=== PATIENT | female | born 1925 | race Caucasian/White ===

== ENCOUNTER 2016-11-27 12:56 | Observation (INO) ==
--- NOTE | 2016-11-27 13:00 | Emergency Department Note ---
Disposition Clinical Impression: Weakness, Nausea, Anorexia, Acute renal insufficiency UTI (urinary tract infection) Qualifiers: Urinary tract infection type: acute cystitis Hematuria presence: without hematuria Qualified Code(s): N30.00 - Acute cystitis without hematuria Disposition: Admitted As Inpatient Condition: Good Referrals: Lorna Schwarz CNP [Primary Care Provider] - () Forms: ED Satisfaction Letter General Adult HPI - General Chief complaint: ED Nausea/Vomiting/Diarrhea Stated complaint: Vomiting, Dysuria, Time Seen by Provider: 11/27/16 13:08 Source: patient, family Mode of arrival: private vehicle Limitations: altered mental status (Dementia), age Nursing Notes Reviewed: Yes Vital Signs Reviewed: Yes - History of Present Illness HPI Narrative: Patient reportedly had a urinary tract infection about a month ago and it returned with evaluation at this emergency department on November 21. She had a culture positive for Escherichia coli that was pansensitive and she was placed on Bactrim and Pyridium. Since going home she has had lassitude and has been "laying around". She has had a decrease in oral intake and has lost about 4 pounds. She has had nausea and vomiting about 1-2 times a day just described as a "small amount" without any blood or mucus. She states she is holding medication down and is taking down some fluids. She has had normal bowel and 2 days ago and as noted she is urinating less frequently. She has not been having fever, chills, cough, chest pain or shortness of breath. She denies anterior abdominal pain or flank pain. She has indicates she gets a little dizzy when she stands. Her family was concerned for dehydration and have brought her back for reevaluation. Onset (ago): day(s) Consistency: constant Improves with: rest Worsens with: movement, other (Activity) Associated symptoms: Reports: loss of appetite, malaise, weakness. Denies: confusion, chest pain, cough, diaphoresis, fever/chills, headaches, nausea/ vomiting, rash, seizure, shortness of breath, syncope - Related Data Home Medications Medication Instructions Recorded Confirmed Acetaminophen [Tylenol Arthritis] 650 mg PO DAILY PRN 08/07/16 11/27/16 Aspirin 81 mg PO DAILY 11/21/16 11/27/16 Previous Rx's Medication Instructions Recorded Simvastatin [Zocor] 20 mg PO HS #30 tab 09/12/16 amLODIPine [Norvasc] 5 mg PO DAILY #30 tab 09/12/16 Phenazopyridine [Pyridium] 200 mg PO TID PRN #9 tablet 11/21/16 Sulfamethoxazole/Trimeth DS 1 each PO BID #20 tablet 11/21/16 [Bactrim DS] Allergies Allergy/AdvReac Type Severity Reaction Status Date / Time iodine Allergy Anaphylaxis Verified 09/11/16 14:56 acetaminophen [From Vicodin] AdvReac Vomiting Verified 09/11/16 14:56 hydrocodone [From Vicodin] AdvReac Vomiting Verified 09/11/16 14:56 Oxycodone [From Percocet] AdvReac Dizziness Verified 09/11/16 14:56 All systems ED: reviewed and negative except as stated. Past Medical History - Past Medical History Attestation: Yes The following information was validated with the patient. 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 - Social History Smoking Status: Never smoker Smokeless Tobacco Status: No Alcohol use: Reports: none Drug use: Reports: none Physical Exam - General Limitations: no limitations General appearance: alert, in no apparent distress - Head Head exam: atraumatic, normocephalic, normal inspection - Eye Eye exam: Present: normal appearance, PERRL, EOMI - ENT ENT exam: normal exam, normal oropharynx, mucous membranes dry - Neck Neck exam: Present: normal inspection, full ROM, trachea midline - Chest Chest inspection: Present: normal inspection, symmetric chest wall rise - Respiratory Respiratory exam: Present: normal lung sounds bilaterally. Absent: respiratory distress, wheezes, prolonged expiratory phase - Cardiovascular Cardiovascular exam: Present: regular rate, normal rhythm, normal heart sounds - Abdominal Exam Abdominal exam: Present: soft, Non-Tender, normal bowel sounds. Absent: tenderness, distention, guarding, rebound, rigidity Abdominal tenderness: Absent: suprapubic - Extremities Exam Extremities exam: Present: normal inspection, full ROM, normal capillary refill. Absent: tenderness, pedal edema, calf tenderness - Expanded Lower Extremity Exam Neurovascular/Tendon exam: Present: normal capillary refill. Absent: motor deficit, sensory deficit, tendon deficit Gait: observed and normal - Back Exam Back exam: Present: normal inspection, full ROM. Absent: tenderness, CVA tenderness (R), CVA tenderness (L), vertebral tenderness - Neurological Exam Neurological exam: Present: alert, normal gait. Absent: motor sensory deficit - Psychiatric Psychiatric exam: Present: normal affect, normal mood - Skin Skin exam: Present: warm, dry, intact, normal color. Absent: rash, cyanosis, diaphoresis, pallor Course Course Narrative: 1425: With persistent UTI and acute renal insufficiency, care has been discussed with family and with Dr. Jamison. The decision has been made to have her inpatient for continued observation. Verbal orders have been obtained. Vital Signs Temperature 98.1 F 11/27/16 12:59 Pulse Rate 96 11/27/16 12:59 Respiratory Rate 18 11/27/16 12:59 Blood Pressure 117/78 11/27/16 12:59 O2 Sat by Pulse Oximetry 98 11/27/16 12:59 Temperature 98.1 F 11/27/16 12:59 Pulse Rate 71 11/27/16 14:10 Respiratory Rate 18 11/27/16 14:10 Blood Pressure 125/78 11/27/16 14:10 O2 Sat by Pulse Oximetry 95 11/27/16 14:10 Oxygen Delivery Oxygen Delivery Room Air Medical Decision Making - Medical Records Medical records reviewed: Yes I reviewed the patient's medical records. - Lab Data Lab results reviewed: Yes I reviewed the patient's lab results. Result diagrams: 11/27/16 13:25 11/27/16 13:25 Lab Results 11/27/16 11/27/16 11/27/16 Range/Units 13:25 13:25 13:25 WBC 5.8 (4.3-11.1) K/mcL RBC 3.99 (3.82-4.97) M/mcL Hgb 12.0 (11.5-15.4) g/dL Hct 37.7 (35.3-44.9) % MCV 94.5 (83.0-100.0) fL MCH 30.1 (28.0-33.3) pg MCHC 31.8 (31.6-35.5) g/dL RDW 12.9 (11.5-14.5) % Plt Count 168 (140-400) K/mcL MPV 10.3 (9.4-12.4) fL Immature Gran % 0.3 (0-4) % Seg Neutrophils % 62.4 % Lymphocytes % 26.2 % Monocytes % 6.2 % Eosinophils % 4.2 % Basophils % 0.7 % Neutrophils # 3.6 (1.6-8.9) K/mcL Lymphocytes # 1.5 (0.6-4.6) K/mcL Monocytes # 0.4 (0.0-1.3) K/mcL Eosinophils # 0.2 (0.0-0.6) K/mcL Basophils # 0.0 (0.0-0.2) K/mcL Sodium 139 (136-145) mEq/L Potassium 4.5 (3.5-4.5) mEq/L Chloride 104 (98-109) mEq/L Carbon Dioxide 21 (19-29) mEq/L BUN 27 H (7-20) mg/dL Creatinine 1.74 H (0.57-1.11) mg/dL Est GFR ( Amer) 33 L (> 60) Est GFR (Non-Af Amer) 28 L (> 60) BUN/Creatinine Ratio 16 (6-26) Glucose 135 H (70-99) mg/dL Calculated Osmolality 295 (280-300) Lactic Acid 1.6 (0.5-2.2) mmol/L Calcium 10.1 (8.6-10.8) mg/dL Urine Color (Yellow) Urine Clarity (Clear) Urine pH (5.0-8.0) pH Units Ur Specific [place] (1.010-1.025) Urine Protein (Neg-Trace) mg/dL Urine Glucose (UA) (Normal) mg/dL Urine Ketones (Negative) mg/dL Urine Blood (Negative) Urine Nitrite (Negative) Urine Bilirubin (Negative) Urine Urobilinogen (Normal) mg/dL Ur Leukocyte Esterase (Negative) Urine Microscopic RBC (0-3) per hpf Urine Microscopic WBC (0-3) per hpf Ur Squamous Epith Cells (None-Few) per lpf Urine Bacteria (None-Few) per hpf Hyaline Casts (None-Few) per lpf Granular Casts (None Seen) per lpf Ur Culture Indicated? (NO) 11/27/16 Range/Units 14:10 WBC (4.3-11.1) K/mcL RBC (3.82-4.97) M/mcL Hgb (11.5-15.4) g/dL Hct (35.3-44.9) % MCV (83.0-100.0) fL MCH (28.0-33.3) pg MCHC (31.6-35.5) g/dL RDW (11.5-14.5) % Plt Count (140-400) K/mcL MPV (9.4-12.4) fL Immature Gran % (0-4) % Seg Neutrophils % % Lymphocytes % % Monocytes % % Eosinophils % % Basophils % % Neutrophils # (1.6-8.9) K/mcL Lymphocytes # (0.6-4.6) K/mcL Monocytes # (0.0-1.3) K/mcL Eosinophils # (0.0-0.6) K/mcL Basophils # (0.0-0.2) K/mcL Sodium (136-145) mEq/L Potassium (3.5-4.5) mEq/L Chloride (98-109) mEq/L Carbon Dioxide (19-29) mEq/L BUN (7-20) mg/dL Creatinine (0.57-1.11) mg/dL Est GFR ( Amer) (> 60) Est GFR (Non-Af Amer) (> 60) BUN/Creatinine Ratio (6-26) Glucose (70-99) mg/dL Calculated Osmolality (280-300) Lactic Acid (0.5-2.2) mmol/L Calcium (8.6-10.8) mg/dL Urine Color Dark Yellow (Yellow) Urine Clarity Clear (Clear) Urine pH 5.5 (5.0-8.0) pH Units Ur Specific [place] 1.025 (1.010-1.025) Urine Protein 30 H (Neg-Trace) mg/dL Urine Glucose (UA) Normal (Normal) mg/dL Urine Ketones Negative (Negative) mg/dL Urine Blood Trace-lysed H (Negative) Urine Nitrite Positive A (Negative) Urine Bilirubin Small H (Negative) Urine Urobilinogen Normal (Normal) mg/dL Ur Leukocyte Esterase Trace H (Negative) Urine Microscopic RBC 0-3 (0-3) per hpf Urine Microscopic WBC 15-30 H (0-3) per hpf Ur Squamous Epith Cells Moderate H (None-Few) per lpf Urine Bacteria Moderate H (None-Few) per hpf Hyaline Casts Few (None-Few) per lpf Granular Casts Few H (None Seen) per lpf Ur Culture Indicated? YES A (NO)
[2016-11-27] MEDS ORDERED: 0.9 % Sodium Chloride 500 ML IVC ONE (13:13)
[2016-11-27 13:31] LABS: Basophils % 0.7 %; Eosinophils # 0.2 K/mcL (0.0-0.6); Eosinophils % 4.2 %; Hematocrit 37.7 % (35.3-44.9); Immature Granulocytes % 0.3 % (0-4); Lymphocytes # 1.5 K/mcL (0.6-4.6); Lymphocytes % 26.2 %; Mean Corpuscular HGB Conc 31.8 g/dL (31.6-35.5); Mean Corpuscular Hemoglobin 30.1 pg (28.0-33.3); Mean Corpuscular Volume 94.5 fL (83.0-100.0); Mean Platelet Volume 10.3 fL (9.4-12.4); Monocytes # 0.4 K/mcL (0.0-1.3); Monocytes % 6.2 %; Neutrophils # 3.6 K/mcL (1.6-8.9); Platelet Count 168 K/mcL (140-400); Red Blood Count 3.99 M/mcL (3.82-4.97); Red Cell Distribution Width 12.9 % (11.5-14.5); Segmented Neutrophils % 62.4 %
[2016-11-27 13:47] LABS: Calcium 10.1 mg/dL (8.6-10.8); Potassium 4.5 mEq/L (3.5-4.5)
[2016-11-27 14:14] LABS: Bilirubin,Urine Small (Negative); Blood,Urine Trace-lysed (Negative); Clarity,Urine Clear (Clear); Glucose,Urine (UA) Normal (Normal); Ketones,Urine Negative (Negative); Leukocyte Esterase,Urine Trace (Negative); Nitrite,Urine Positive (Negative); PH,Urine 5.5 pH Units (5.0-8.0); Protein,Urine 30 mg/dL (Neg-Trace); Specific Gravity,Urine 1.025 (1.010-1.025); Urobilinogen,Urine Normal (Normal)
[2016-11-27 14:20] LABS: Color,Urine Dark Yellow (Yellow)
[2016-11-27 14:22] LABS: Granular Casts,Urine Few per lpf (None Seen)
[2016-11-27 14:23] LABS: Bacteria,Urine Moderate per hpf (None-Few); Hyaline Casts,Urine Few per lpf (None-Few); RBC,Urine 0-3 per hpf (0-3); Squamous Epithelial Cell,Urine Moderate per lpf (None-Few); WBC,Urine 15-30 per hpf (0-3)
[2016-11-27] MEDS ORDERED: 0.9 % Sodium Chloride 1,000 ML IVC SCH (15:07)
[2016-11-27] MEDS ORDERED: MOM Conc 10 ML UD.LIQ PO PRN (15:07)
[2016-11-27] MEDS ORDERED: Acetaminophen 325 MG TABLET PO PRN (15:07)
[2016-11-27] MEDS ORDERED: Ondansetron 4 MG/2 ML VIAL IVP PRN (15:07)
[2016-11-27] MEDS ORDERED: Naloxone 0.4 MG/ML INJ IVP PRN (15:07)
--- NOTE | 2016-11-27 16:39 | Internal Med History&Physical ---
Date of Encounter: 11/27/16 Time of Encounter: 16:10 Assessment and Plan (1) Acute renal insufficiency Current visit: Yes Status: Acute Appears to be acute on chronic. We will give IV fluids and recheck labs in a.m. Will check orthostatic vital signs in a.m. (2) Hypertension Current visit: No Status: Chronic Will hold Norvasc and give IV fluids. Will check orthostatic vital signs in a.m. Qualifiers: Hypertension type: essential hypertension Qualified Code(s): I10 - Essential (primary) hypertension Internal Medicine - H&P: HPI Chief complaint: UTI, vomiting, weakness Admitted From: Home Plans for Post Hospital Care: Home History of present illness: Ms. Fajardo is a 89 year old female who came to emergency room after having 5- 6 episodes of vomiting over the past 5 days. She had been treated in the emergency room 11/21/2016 for UTI and prescribed Pyridium and Bactrim DS. She had gotten progressively more nauseated with vomiting over the following days. She was evaluated in emergency room today and found to have acute on chronic kidney disease. [facility] care needs. She denies pain at this time. Her daughter was unaware patient has evidence of chronic kidney disease from review of past labs. There is no other history of kidney or bladder disorders. Past Med Surg Social Fam HX - Past Medical History Medical history: dementia, hyperlipidemia, hypertension, TIA, other Psychiatric history: no psych history - Past Surgical History Surgical History: hysterectomy, orthopedic, other, other - Social History Smoking Status: Never smoker Smokeless Tobacco Status: No Alcohol use: none Drug use: none - Family History Mother Adopted: No Living Status: Hx Family Cardiac Disorders: No Hx Family Respiratory Disorders: No Hx Family Cancer: Yes (uterine cancer) Hx Family GI Disorders: No Hx Family Endocrine Disorder: No Hx Family Neuromuscular Disorders: No Hx Family Neurologic Disorders: No Hx Family HEENT Disorders: No Hx Family Autoimmune Disorders: No Internal Medicine - H&P: Meds Acetaminophen [Tylenol Arthritis] 650 mg PO DAILY PRN 08/07/16 [History] Simvastatin [Zocor] 20 mg PO HS #30 tab 09/12/16 [Rx] amLODIPine [Norvasc] 5 mg PO DAILY #30 tab 09/12/16 [Rx] Aspirin 81 mg PO DAILY 11/21/16 [History] Phenazopyridine [Pyridium] 200 mg PO TID PRN #9 tablet 11/21/16 [Rx] Sulfamethoxazole/Trimeth DS [Bactrim DS] 1 each PO BID #20 tablet 11/21/16 [Rx] 3 Allergy/AdvReac Type Severity Reaction Status Date / Time iodine Allergy Anaphylaxis Verified 09/11/16 14:56 acetaminophen [From Vicodin] AdvReac Vomiting Verified 09/11/16 14:56 hydrocodone [From Vicodin] AdvReac Vomiting Verified 09/11/16 14:56 Oxycodone [From Percocet] AdvReac Dizziness Verified 09/11/16 14:56 All Systems PM: A 10-system review of systems was performed and is negative for pertinent findings except as documented above in the HPI. Review of systems: Gen.: Her daughter supplies history since patient has hearing loss and has some dementia. Gen.: She had a 4 pound weight loss in the past few days secondary to vomiting. Prior to that her weight has been stable for several months. Cardiovascular: She was diagnosed with hypertension within the past 12 months. There is no history of [place] heart failure angina DVT or pulmonary embolus Respiratory: She is a lifelong nonsmoker and has no known chronic lung disease GI: No history of liver gallbladder or pancreas disease : As per history of present illness Neurologic: She had a "stroke" in 2000 with no permanent neurologic deficit. There has been no recurrence. She has no history of seizures or other neurologic problems. 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 - Constitutional Vitals: Temp Pulse Resp BP Pulse Ox 98.1 F 74 16 106/48 92 11/27/16 12:59 11/27/16 15:03 11/27/16 15:03 11/27/16 15:03 11/27/16 15:30 Exam: Gen.: She is a well-developed well-nourished female who appears in no acute distress at present time. HEENT: Head is atraumatic and normocephalic. Eyes: EOMI. There is no scleral icterus. Mouth: Mucosa is moist. Neck: Supple and nontender. There is no thyromegaly or adenopathy noted. Heart: Regular without murmurs gallops or ectopics Lungs: No wheezes or crackles are heard. Abdomen: Soft and nontender. No masses or guarding noted. Extremities: There is no cyanosis of her fingernails. She is wearing 2 pairs socks which I did not remove. There is no pitting edema of her ankles. She has DJD changes of her hands. Neurologic: Mental status: She is able to answer a few questions but has poor memory overall. Cranial nerves: Smile is symmetric. Forehead wrinkles bilaterally. Tongue protrudes midline. EOMI. Motor: There is no pronator drift. Cerebellar: Finger to nose is intact bilaterally. Skin: Warm and dry Internal Med - H&P Results - Labs CBC & Chem 7: 11/27/16 13:25 11/27/16 13:25
[2016-11-28 06:16] LABS: Calcium 8.4 mg/dL (8.6-10.8); Potassium 4.2 mEq/L (3.5-4.5)
[2016-11-28 06:25] VITALS: BP 118/61
[2016-11-28] MEDS ORDERED: Aspirin 81 MG TAB.CHEW PO SCH (09:00)
[2016-11-28] MEDS ORDERED: amLODIPine 5 MG TABLET PO SCH (09:00)
--- NOTE | 2016-11-28 10:00 | Discharge Summary ---
Date of Encounter: 11/28/16 Time of Encounter: 09:50 - Discharge Diagnosis (1) Acute renal insufficiency Priority: Primary Status: Acute (2) Hypertension Priority: Secondary Status: Chronic Qualifiers: Hypertension type: essential hypertension Qualified Code(s): I10 - Essential (primary) hypertension - Discharge Medications Home Medications: Acetaminophen [Tylenol Arthritis] 650 mg PO DAILY PRN 08/07/16 [History] Simvastatin [Zocor] 20 mg PO HS #30 tab 09/12/16 [Rx] Aspirin 81 mg PO DAILY 11/21/16 [History] Allergies/Adverse Reactions: 3 Allergy/AdvReac Type Severity Reaction Status Date / Time iodine Allergy Anaphylaxis Verified 09/11/16 14:56 acetaminophen [From Vicodin] AdvReac Vomiting Verified 09/11/16 14:56 hydrocodone [From Vicodin] AdvReac Vomiting Verified 09/11/16 14:56 Oxycodone [From Percocet] AdvReac Dizziness Verified 09/11/16 14:56 sulfamethoxazole AdvReac Vomiting Verified 11/28/16 00:23 [From Bactrim] trimethoprim [From Bactrim] AdvReac Vomiting Verified 11/28/16 00:23 Date of admission: 11/27/16 15:01 Primary care physician: Lorna Schwarz CNP Consults: 11/27/16 15:50 Consult to Nutrition [CONS] Routine Comment: Consulting Provider: NUTRITION Reason for Dietary Consult: MST Score - Patient Status Disposition: Home, Self-Care Condition: Good Overall status at discharge: patient is progressing back to baseline - Discharge Instructions Follow Up With: Lorna Schwarz CNP [Primary Care Provider] - 1 week - Diet and Activity Activity: resume usual activities as tolerated Diet: advance to your usual diet Hospital course: Ms. Fajardo is a 89 year old female who came to emergency room after having 5- 6 episodes of vomiting over the past 5 days. She had been treated in the emergency room 11/21/2016 for UTI and prescribed Pyridium and Bactrim DS. She had gotten progressively more nauseated with vomiting over the following days. She was evaluated in emergency room today and found to have acute on chronic kidney disease. She was admitted to [facility] for ongoing care needs. Initial orders were written by the emergency room physician. I saw her on November 27 and performed a history and physical. She was given IV fluids. Antiemetics were given when necessary. She had no further vomiting after I saw her. Norvasc was held because of borderline hypotension. Her blood pressure remained stable throughout hospital stay and Norvasc will continue to be held at discharge. Her azotemia improved with creatinine decreasing to 1.46 the day of discharge with estimated GFR 34. 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 There were no new problems and on November 28 I felt she was stable for discharge home. She will follow with her PCP Lorna Schwarz CNP within one week. - Time Spent with Patient Total time spent providing and/or coordinating discharge services: - Constitutional Vitals: Temp Pulse Resp BP Pulse Ox 98.6 F 72 16 118/61 94 11/28/16 06:22 11/28/16 06:22 11/28/16 06:22 11/28/16 06:22 11/28/16 09:13 - VTE Documentation of Mechanical Device: Graduated compression elastic hosiery
== END 2016-11-28 10:37 | disposition home or self-care (01) ==
LOC: INPPIK 12:56 → EMEROOPIK 12:56 → INPPIK 15:05
PROVIDERS: ADMIT Internal Medicine; ATTEND Internal Medicine